=== PATIENT | male | born 1990 | race Two or more races ===

== ENCOUNTER 2019-03-08 16:58 | Emergency (ER) | payer MEDICAID, OTHER ==
[~2019-03-08] VITALS: Ht 177.8 cm; Wt 79.4 kg
[2019-03-08 18:42] LABS: Basophils # (auto) 0 uL; Basophils % (auto) 0.3 % (0.0-2.0); Eosinophils # (auto) 0 uL; Eosinophils % (auto) 0.2 % (0.0-7.0); Hematocrit 44.9 % (41.0-53.0); Hemoglobin 15.6 g/dL (13.5-17.5); Lymphocytes # (auto) 0.4 uL; Lymphocytes % (auto) 3.6 % (10.0-50.0); Mean Corpuscular Hemoglobin 32.3 pg (28.0-32.0); Mean Corpuscular Hgb Conc. 34.7 g/dL (32.0-36.0); Mean Corpuscular Volume 93.1 fL (80.0-100.0); Monocytes # (auto) 0.5 uL; Monocytes % (auto) 4.8 % (0.0-12.0); Neutrophils # (auto) 10.2 uL; Neutrophils % (auto) 91.1 % (37.0-80.0); Platelet Count (auto) 204 10^3/uL (140-450); Red Blood Cells 4.82 10^6/uL (4.5-5.90); Red Cell Distribution Width 12.6 % (11.8-14.3); White Blood Cell 11.2 10^3/uL (4.4-10.8)
[2019-03-08 18:58] LABS: Albumin 4.4 g/dL (3.4-5.0); Calcium 9.4 mg/dL (8.5-10.1); Potassium 3.7 mmol/L (3.5-5.1)
[2019-03-08 19:02] LABS: BUN/Creatinine Ratio 17.5; Bilirubin, Total 0.6 mg/dL (0.2-1.0); Total Protein 7.8 g/dL (6.4-8.2)
[2019-03-08] MEDS ORDERED: cefTRIAXone W LIDOCAINE 1 GM IM IM ONE (21:30)
[2019-03-08 21:42] LABS: Alcohol, Urine < 3.0 mg/dL (0-5); Amphetamine Screen, Urine NEGATIVE (NEGATIVE); Benzodiazephine Screen, Urine NEGATIVE (NEGATIVE); Cannabinoid Screen, Urine POSITIVE (NEGATIVE); Cocaine Screen, Urine NEGATIVE (NEGATIVE); Opiate Scree,Urine NEGATIVE (NEGATIVE); Phencyclidine Screen, Urine NEGATIVE (NEGATIVE)
[2019-03-08 21:52] LABS: Barbiturate Scree,Urine NEGATIVE (NEGATIVE)
[2019-03-08] MEDS ORDERED: cefTRIAXone SOD 1,000 MG VL ONE (21:55)
[2019-03-08 22:43] VITALS: BP 119/68
== END 2019-03-08 22:51 | disposition short-term general hospital (02) ==
LOC: EDBD 16:58 → ER 17:03
DX: S02.32XA Fracture of orbital floor, left side, initial encounter for closed fracture (principal); S16.1XXA Strain of muscle, fascia and tendon at neck level, initial encounter; S39.012A Strain of muscle, fascia and tendon of lower back, initial encounter; H53.2 Diplopia; Y04.0XXA Assault by unarmed brawl or fight, initial encounter; Y93.89 Activity, other specified; Y99.8 Other external cause status; Y92.89 Other specified places as the place of occurrence of the external cause
CPT/HCPCS: 36415; 70450; 70486; 72125; 72131; 80053; 80307; 80320; 85025; 96372; 99285; J0696

== ENCOUNTER 2019-04-06 14:58 | Emergency (ER) | payer MEDICAID ==
[~2019-04-06] VITALS: Ht 177.8 cm; Wt 81.6 kg
[2019-04-06 18:15] VITALS: BP 116/71
== END 2019-04-06 18:18 | disposition home or self-care (01) ==
LOC: EDBD 14:58 → ER 15:07
DX: F41.9 Anxiety disorder, unspecified (principal); F31.9 Bipolar disorder, unspecified; F20.9 Schizophrenia, unspecified; F17.210 Nicotine dependence, cigarettes, uncomplicated; F12.90 Cannabis use, unspecified, uncomplicated